=== PATIENT | female | born 1965 ===

== ENCOUNTER 2023-05-02 15:47 | Outpatient (RCR) | payer BC, MEDICAID, SELFPAY ==
--- NOTE | 2023-05-02 16:54 | PTOPEVAL1 ---
Assessment and note entered by Antonio Ramirez Evaluation Information Assessment Status Evaluation Diagnosis nondisplaced closed fracture of the navicular, right foot Onset 03/16/23 Subjective Information Pt. reports she slipped on the ice on 03/16/23. She reports she was at the grocery store and slipped while carrying groceries. She recalls the right foot tucking underneath her. She reports she went to urgent care the following day. She underwent xray which revealed a fracture. She went to the ortho and was placed in a walking boot for 1 month. She reports that she has been totally out of the boot for 1-2 weeks. She states that she cannot walk any significant distance. 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 She reports with work she has to be on her toes often. She reports she has not been to work since the injury and cannot return if she has restriction. she states that her goal is to decrease her right foot pain with walking and return to work. Reported Pain Level Pain Score 9: Self Report Assessment PT Clinical Summary Pt. is a 57 year old female who enters the clinic post navicular fx. She presents with impaired gait, functional decline, weakness, impaired foot and ankle mobility and pain. continued skilled PT is indicated in order to improve these areas to allow pt. improved comfort and function to return to work related duties. Plan of Care Interventions Electrical Stimulation,Gait Training,Hot Pack/Cold Pack,Manual Therapy,Neuro Re-education,Patient/ Caregiver Educati,Therapeutic Activities, Therapeutic Exercise PT Services Indicated Yes Treatment Frequency and 2x/week x 10 visits Duration These treatments will address the objective and functional deficits as defined above. The patient will be advanced safely and appropriately in order for the patient to progress towards his/her prior level of function. Additional exercises will be introduced and as well as a comprehensive home exercise program upon discharge, if needed, ?to ensure carryover of functional gains achieved in the clinic. This treatment plan has been reviewed and agreement upon by the patient.
--- NOTE | 2023-05-02 16:54 | OPREHPOC ---
Outpatient Therapy Plan of Care This is a Multidisciplinary Plan of Care that may contain components documented by all disciplines (PT, OT, and ST.) PT Problem 1 PT Problem #1 Knowledge Deficit PT Goal 1 Goal Independent with a HEP addressing strength and mobility [facility]. Target Visit 2 PT Problem 2 PT Problem #2 Pain PT Goal 1 Goal Pt. will complete the 6 minute walk test with 3/10 pain at worst over a distance of 1000' to return to work related duties. Target Visit 10 PT Problem 3 PT Problem #3 Impaired Gait PT Goal 1 Goal Pt. will demonstrate equal right and left stance time with ambulation. Target Visit 10 PT Problem 4 PT Problem #4 Impaired Strength PT Goal 1 Goal Pt. will be able to complete 5 single limb heel raises on the right Target Visit 10
--- NOTE | 2023-05-12 14:59 | OPREHPOC ---
Outpatient Therapy Plan of Care This is a Multidisciplinary Plan of Care that may contain components documented by all disciplines (PT, OT, and ST.) PT Problem 1 PT Problem #1 Knowledge Deficit PT Goal 1 Goal Independent with a HEP addressing strength and mobility [facility]. Target Visit 2 PT Problem 2 PT Problem #2 Pain PT Goal 1 Goal Pt. will complete the 6 minute walk test with 3/10 pain at worst over a distance of 1000' to return to work related duties. Target Visit 10 PT Problem 3 PT Problem #3 Impaired Gait PT Goal 1 Goal Pt. will demonstrate equal right and left stance time with ambulation. Target Visit 10 PT Problem 4 PT Problem #4 Impaired Strength PT Goal 1 Goal Pt. will be able to complete 5 single limb heel raises on the right Target Visit 10
--- NOTE | 2023-05-12 14:59 | PTOPEVAL1 ---
Assessment and note entered by Karlene Urban, PT Evaluation Information Assessment Status Evaluation Diagnosis nondisplaced closed fracture of the navicular, right foot Onset 03/16/23 Subjective Information Pt. reports she slipped on the ice on 03/16/23. She reports she was at the grocery store and slipped while carrying groceries. She recalls the right foot tucking underneath her. She reports she went to urgent care the following day. She underwent xray which revealed a fracture. She went to the ortho and was placed in a walking boot for 1 month. She reports that she has been totally out of the boot for 1-2 weeks. She states that she cannot walk any significant distance. 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 She reports with work she has to be on her toes often. She reports she has not been to work since the injury and cannot return if she has restriction. she states that her goal is to decrease her right foot pain with walking and return to work. Assessment PT Clinical Summary Pt. is a 57 year old female who enters the clinic post navicular fx. She presents with impaired gait, functional decline, weakness, impaired foot and ankle mobility and pain. continued skilled PT is indicated in order to improve these areas to allow pt. improved comfort and function to return to work related duties. Plan of Care Interventions Electrical Stimulation,Gait Training,Hot Pack/Cold Pack,Manual Therapy,Neuro Re-education,Patient/ Caregiver Educati,Therapeutic Activities, Therapeutic Exercise PT Services Indicated Yes Treatment Frequency and 2x/week x 10 visits Duration These treatments will address the objective and functional deficits as defined above. The patient will be advanced safely and appropriately in order for the patient to progress towards his/her prior level of function. Additional exercises will be introduced and as well as a comprehensive home exercise program upon discharge, if needed, ?to ensure carryover of functional gains achieved in the clinic. This treatment plan has been reviewed and agreement upon by the patient.
--- NOTE | 2023-05-16 10:18 | PCPTNOTE ---
pt no show. contacted pt stating she has been discharged from dr rivera.
--- NOTE | 2023-08-24 14:43 | PCPTNOTE ---
Mrs. Santana attended a total of 4 treatment sessions from 05/02/23 to 05/12/23. She has failed to return to the clinic and has not contacted the clinic. She will be discharged from our care at this time. refer to the last daily note for patient discharge status.
== END 2023-05-12 23:59 | disposition home or self-care (01) ==
LOC: CHSPT 15:47
PROVIDERS: Visit Provider Orthopaedic Surgery
DX: S92.254D Nondisplaced fracture of navicular [scaphoid] of right foot, subsequent encounter for fracture with routine healing (principal)
CPT/HCPCS: 97014; 97110; 97140; 97161; G0283